=== PATIENT | female | born 1970 | race Caucasian/White ===

== ENCOUNTER 2019-12-11 21:56 | Inpatient (IN) | payer OTHER ==
[~2019-12-11] VITALS: Ht 160 cm; Wt 90.8 kg
[2019-12-11 21:56] VITALS: BP 154/91
[2019-12-11 22:23] LABS: BE(vivo) -10.2 mmol/L (-2 to +3); HCO3 13.8 mmol/L (22.0-26.0); PCO2 25.2 mmHg (35.0-45.0); PO2 81.4 mmHg (80.0-100.0); pH 7.356 (7.360-7.450); sO2 95.8 % (92.0-98.0)
[2019-12-11] MEDS ORDERED: ELIQUIS5 MG PO (22:46)
[2019-12-11] MEDS ORDERED: ACETAMINOPHEN PO (22:46)
[2019-12-11] MEDS ORDERED: LIPITOR80 MG PO (22:47)
[2019-12-11] MEDS ORDERED: CARVEDILOL12.5 MG PO (22:47)
[2019-12-11] MEDS ORDERED: CELEXA 10 MG TA10 M1 PO (22:48)
[2019-12-11] MEDS ORDERED: CLONAZEPAM 0.50.5 M1 PO (22:48)
[2019-12-11] MEDS ORDERED: DORYX MPC120 MG PO (22:49)
[2019-12-11] MEDS ORDERED: PLAVIX 75 MG TA75 MG PO (22:49)
[2019-12-11] MEDS ORDERED: LORCET 5-325 M1 EACH PO (22:50)
[2019-12-11] MEDS ORDERED: ACID REDUCER20 MG PO (22:50)
[2019-12-11 22:51] LABS: HEMOGLOBIN 9.7 gm/dL (12.0-15.0); MCH 27.1 pg (26.0-34.0); MCHC 31.3 g/dL (28.0-37.0); MCV 86.4 fL (80.0-100.0); PLATELET COUNT 570 thou/uL (150-400); RBC 3.59 mil/uL (4.20-5.00); RDW 19.1 % (10.5-14.5)
[2019-12-11] MEDS ORDERED: ISOSORBIDE PO (22:51)
[2019-12-11] MEDS ORDERED: GLARGINE SUBQ (22:51)
[2019-12-11] MEDS ORDERED: SUPER THERAVIT1 EACH PO (22:52)
[2019-12-11] MEDS ORDERED: MIRALAX17 G1 PO (22:54)
[2019-12-11] MEDS ORDERED: NITROSTAT0.4 M1 SUBLING (22:54)
[2019-12-11] MEDS ORDERED: SEN-O-TAB8.6 MG PO (22:55)
[2019-12-11] MEDS ORDERED: ROPINIROLE HCL2 MG PO (22:55)
[2019-12-11] MEDS ORDERED: ACETAMINOPHEN325 MG PO (22:56)
[2019-12-11] MEDS ORDERED: TRAMADOL 50 MG50 MG PO (22:56)
[2019-12-11 23:01] LABS: CALCIUM 8.4 mg/dL (8.5-10.1); CREATININE 1.7 mg/dL (0.6-1.0); POTASSIUM 4.8 mmol/L (3.5-5.1)
[2019-12-11 23:12] LABS: ALBUMIN 2.6 g/dL (3.4-5.0); MAGNESIUM 1.4 mg/dL (1.8-2.4); TOTAL BILIRUBIN 0.3 mg/dL (<0.1-1.0); TOTAL PROTEIN 8.2 g/dL (6.4-8.2)
[2019-12-11 23:16] LABS: TROPONIN-I 1.15 ng/mL (<0.06)
[2019-12-11 23:26] LABS: URINE BILIRUBIN NEGATIVE (Negative); URINE BLOOD TRACE (Negative); URINE CLARITY CLOUDY; URINE COLOR YELLOW; URINE GLUCOSE-RANDOM* NEGATIVE (Negative); URINE KETONES NEGATIVE (Negative); URINE NITRITE-REFLEX NEGATIVE (Negative); URINE PROTEIN (DIPSTICK) 2+ (Negative); URINE SPECIFIC GRAVITY >= 1.030 (1.005-1.035); URINE UROBILINOGEN 0.2 E.U./dl (0.2-1.0)
[2019-12-11 23:31] LABS: ABSOLUTE NEUTROPHILS 19.7 thou/uL (1.4-8.2); ANISOCYTOSIS 2+; POLYCHROMASIA SLIGHT
[2019-12-11 23:31] LABS: URINE LEUKOCYTES-REFLEX 1+ (Negative)
[2019-12-11 23:33] LABS: SQUAMOUS 4-10 Moderate /LPF (0-3); URINE RBC 0-2 Rare /HPF (0-2); URINE WBC-REFLEX >25 Many /HPF (0-5); WBC CLUMPS Moderate (None Seen)
[2019-12-11 23:34] LABS: COARSE GRANULAR CASTS 0-3 Few /LPF (None Seen); CRYSTALS None Seen /LPF (None Seen); HYALINE CASTS 4-10 Moderate /LPF (None Seen); MUCUS 4-6 Moderate strn/LPF (None Seen)
--- NOTE | 2019-12-11 23:47 | NUR ---
INSULIN DOSAGE VERIFIED WITH NURSE PRIOR TO ADMINISTRATION
[2019-12-12] VITALS (20 sets, daily range): BP systolic 88–145; BP diastolic 51–82
[2019-12-12 02:25] LABS: APTT 29.2 Seconds (24.5-32.8); D-DIMER 1.61 ug/mLFEU (0.19-0.50); INR 1.1; PROTIME 11.2 Seconds (9.3-11.4)
[2019-12-12 02:52] LABS: BE(vivo) -6.6 mmol/L (-2 to +3); HCO3 18.1 mmol/L (22.0-26.0); PCO2 33.1 mmHg (35.0-45.0); PO2 155.7 mmHg (80.0-100.0); pH 7.356 (7.360-7.450); sO2 98.9 % (92.0-98.0)
[2019-12-12 06:23] LABS: HEMATOCRIT 30.6 % (37.0-47.0); HEMOGLOBIN 9.7 gm/dL (12.0-15.0); MCH 27.2 pg (26.0-34.0); MCHC 31.7 g/dL (28.0-37.0); MCV 85.8 fL (80.0-100.0); RBC 3.56 mil/uL (4.20-5.00); RDW 19.3 % (10.5-14.5); WBC 34.5 thou/uL (4.0-11.0)
[2019-12-12 06:32] LABS: CALCIUM 8.2 mg/dL (8.5-10.1); CREATININE 1.5 mg/dL (0.6-1.0); POTASSIUM 4.5 mmol/L (3.5-5.1)
--- NOTE | 2019-12-12 06:59 | NUR ---
ASSESSMENT: PT ARRIVED TO THE UNIT AT APPROXIMATELY 0200 ACCOMPANIED BY ED. PT WAS INTUBATED IN ED. TV 500, FIO2 40%, RATE 16, PEEP 5. MARLI NOTIFIED OF TROP OF 3.72, NO ORDERS GIVEN. BLOOD PRESSURE WAS RUNNING 80/60 SUSTAINING,. LEVOPHED INITIATED. TITRATED TO MAX OF 30MCG/HR. TWO ULCER WOUNDS NOTED ON LEFT FOOT (GREAT TOE IS REMOVED) AND RIGHT ANKLE AREA. DRESSING WERE CHANGED AND WOUND CARE NOTIFIED. SR PER MONITOR, AFEBRILE. BISHOP PLACED, IV PLACED IN RIGHT BREAST. BLOODY SECRETIONS PER ETT. PLACED IN ENHANCED PREC FOR R/O COVID-19
--- NOTE | 2019-12-12 09:30 | EKG ---
[facility] [place] [address] ELECTROCARDIOGRAM REPORT Name: DESIRE SUBRAMANIAN Room #: 242-P ADM IN M.R.#: [id number] Admission: 12/11/19 Attend Phys: Darryl Fitzgerald Discharge: Date of : 72 Report #: [id number] THIS REPORT FOR: cc: NAZANIN - Naz family physician/PCP NAZANIN - Naz family physician/PCP Carlos Arguello MD [facility] THIS REPORT FOR: //name// [facility] ED Test Date: 2019-12-11 Test Time: 22:10:54 Pat Name: DESIRE SUBRAMANIAN Department: Room: [facility] Gender: F Research Scholar: : 1970 Requested By: Karl Funk Order Number: [id number] MD: Carlos Arguello Measurements Intervals [place] Rate: 147 P: 73 TN: 123 QRS: 149 QRSD: 123 T: 44 QT: 317 QTc: 496 Interpretive Statements Probable sinus tachycardia Nonspecific intraventricular conduction delay Poor R wave progression Nonspecific ST and T wave abnormality Baseline wander in lead(s) III No previous ECG available for comparison Electronically Signed On 12-12-2019 9:29:05 CDT by Carlos Arguello [email or web address] <ELECTRONICALLY SIGNED> By: Carlos Arguello MD, [facility] 12/12/19 0929 2210 221 Carlos Arguello MD, [facility] /EPI
--- NOTE | 2019-12-12 11:24 | EKG ---
[facility] [place] [address] ELECTROCARDIOGRAM REPORT Name: DESIRE SUBRAMANIAN Room #: 242-P ADM IN M.R.#: [id number] Admission: 12/11/19 Attend Phys: Darryl Fitzgerald Discharge: Date of : 72 Report #: [id number] THIS REPORT FOR: cc: NAZANIN - No family physician/PCP FAM - No family physician/PCP Beto Carrera MD ~ THIS REPORT FOR: //name// [facility] Test Date: 2019-12-12 Test Time: 10:38:40 Pat Name: DESIRE SUBRAMANIAN Department: Room: [facility] Gender: F Laundry Attendant: Ayaka COLON : 1970 Requested By: Melody Farnsworth Order Number: [id number] MD: Beto Carrera Measurements Intervals [place] Rate: 99 P: 53 LA: 144 QRS: 94 QRSD: 113 T: 80 QT: 376 QTc: 483 Interpretive Statements Sinus rhythm Anteroseptal infarct, age indeterminate Compared to ECG 12/11/2019 22:10:54 Myocardial infarct finding now present Intraventricular conduction delay no longer present Poor R-wave progression no longer present ST (T wave) deviation no longer present Electronically Signed On 12-12-2019 11:23:21 CDT by Beto Carrera [email or web address] <ELECTRONICALLY SIGNED> By: Beto Carrera MD 12/12/19 1123 1038 1038 Beto Carrera MD /EPI
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
--- NOTE | 2019-12-12 14:43 | NUR ---
VAT CONSULTED FOR A CL FOR THIS PT IN ICU WITH COVID PUI. A [id number] CL PLACED IN RT IJ PER PROTOCOL. CXR ORDERED FOR CONFIRMATION. SEE INSERTION FOR DETAILS
--- NOTE | 2019-12-12 16:44 | NUR ---
PT INTUBATED AND LIGHTLY SEDATED ON VERSED GTT. ASSESSMENTS DOCUMENTED. PT DROWSY BUT AROUSABLE, ALERT AND ORIENTED. FIO2 TITRATED DOWN TO 30% PT SATURATIONS ABOUE 97%. WOUND CARE CONSULTED FOR BILATERAL LOWER EXTREMITY WOUNDS. IV TEAM PLACED A RIGHT IJ, XRAY CONFIRMED TIP PLACEMENT. ADEQUATE URINE OUTPUT. PT PROGRESSING TOWARDS PLAN OF CARE EVIDANCE BY DECREASED FIO2. WILL CONTINUE TO MONITOR.
[2019-12-13] VITALS (44 sets, daily range): BP systolic 92–138; BP diastolic 41–70
[2019-12-13 04:06] LABS: HEMATOCRIT 25.8 % (37.0-47.0); HEMOGLOBIN 8.2 gm/dL (12.0-15.0); MCH 27.1 pg (26.0-34.0); MCV 84.7 fL (80.0-100.0); PLATELET COUNT 456 thou/uL (150-400); RBC 3.04 mil/uL (4.20-5.00); RDW 18.1 % (10.5-14.5); WBC 21.5 thou/uL (4.0-11.0)
[2019-12-13 04:20] LABS: CALCIUM 7.8 mg/dL (8.5-10.1); CREATININE 1.3 mg/dL (0.6-1.0)
[2019-12-13 04:22] LABS: POTASSIUM 3.3 mmol/L (3.5-5.1)
--- NOTE | 2019-12-13 06:47 | NUR ---
PATIENTS CARES WERE ASSUMED AT SHIFT CHANGE, PATIENT WAS ASSESSED AND MEDS WERE PASSED. PATIENT CONTINUES IN DROPPLETT PRECAUTIONS. COVID RESULT #1 CAME BACK NEGATIVE. PATIENT CONTINUES ON A VERSID GTT AT 5CC/HR. VS ARE STABLE AND PATIENT DOES APPER TO BE COMFORABLE. PATIENT HAD A BATH AND LINES WERE CHANGES THIS SHIFT. HOURLY ROUNDS WERE MADE AND BED IS IN A LOW AND LOCKED POSITION.
[2019-12-13 08:31] LABS: % SATURATION 6 % (20-39); IRON 14 ug/dL (50-170); TIBC 225 ug/dL (250-450)
--- NOTE | 2019-12-13 09:09 | 2DMMODE ---
[facility] [place] [address] 2 D/M-MODE ECHOCARDIOGRAM Name: DESIRE SUBRAMANIAN Room #: 242-P ADM IN M.R.#: [id number] Admission: 12/11/19 Attend Phys: Darryl Fitzgerald Discharge: Date of : 72 Report #: [id number] THIS REPORT FOR: cc: FAM - No family physician/PCP FAM - No family physician/PCP Carlos Arguello MD [facility] ~ APPROVED REPORT Study performed: 12/13/2019 08:16:11 EXAM: Comprehensive 2D, Doppler, and color-flow Echocardiogram Patient Location: ICU Room #: 242 Status: routine BSA: 1.85 HR: 108 bpm BP: 111/56 mmHg Rhythm: NSR/tachy Other Information Study Quality: Adequate Technically limited study due to on vent, obesity, lung disease. Indications Short of breath, elevated troponin. Hx: CAD, NSTEMI, COPD, CVA, HTN, HLP, DM. 2D Dimensions RVDd: 35.77 mm IVSd: 11.43 (7-11mm) LVOT Diam: 19.11 (18-24mm) LVDd: 50.09 mm PWd: 10.22 (7-11mm) Ascending Ao: 27.66 (22-36mm) LVDs: 40.28 (25-40mm) Aortic Root: 25.46 mm Volumes Left Atrial Volume (Systole) Single Plane 4CH: 33.48 mL Single Plane 2CH: 49.61 mL LA ESV Index: 24.00 mL/m2 Aortic Valve AoV Peak Dileep.: 1.91 m/s AO Peak Gr.: 14.64 mmHg LVOT Max P.22 mmHg [facility] [address] [place] [address] 2 D/M-MODE ECHOCARDIOGRAM Name: DESIRE SUBRAMANIAN Room #: 242-P [facility] IN [facility]#: [id number] Admission: 12/11/19 Attend Phys: Darryl Sanderson Mar Discharge: Date of : 72 Report #: [id number] LVOT Max V: 1.25 m/s JESUS MANUEL Vmax: 1.87 cm2 Mitral Valve E/A Ratio: 1.2 MV Decel. Time: 173.79 ms MV E Max Dileep.: 1.16 m/s MV A Dileep.: 0.93 m/s MV PHT: 50.40 ms IVRT: 43.83 ms Pulmonary Valve PV Peak Dileep.: 1.27 m/s PV Peak Gr.: 6.42 mmHg Tricuspid Valve RAP Estimate: 10.00 mmHg Left Ventricle The left ventricle is normal size. Regional wall motion is not well visualized but grossly normal. There is normal left ventricular wall thickness. Left ventricular systolic function is at the lower limits of normal LVEF is 50-55%. Right Ventricle The right ventricle is normal size. The right ventricular systolic function is normal. Atria The left atrium size is normal. The right atrium size is normal. Aortic Valve The aortic valve is mildly calcified. No aortic regurgitation is present. There is no aortic valvular stenosis. Mitral Valve The mitral valve is normal in structure. Moderate mitral regurgitation. Tricuspid Valve The tricuspid valve is normal in structure. There is no tricuspid valve regurgitation noted. Unable to assess PA pressure. Pulmonic Valve The pulmonary valve is normal in structure. There is no pulmonic valvular regurgitation. [facility] [place] [address] 2 D/M-MODE ECHOCARDIOGRAM Name: DESIRE SUBRAMANIAN Room #: 242-P ADM IN M.R.#: [id number] Admission: 12/11/19 Attend Phys: Darryl Orozco Discharge: Date of : 72 Report #: [id number] Great Vessels The aortic root is normal in size. The ascending aorta is normal in size. IVC is normal in size and collapses <50% with inspiration. Pericardium There is no pericardial effusion. <Conclusion> Left ventricular systolic function is at the lower limits of normal Regional wall motion is not well visualized but grossly normal. LVEF is 50-55%. The aortic valve is mildly calcified. No aortic regurgitation or stenosis The mitral valve is normal in structure. Moderate mitral regurgitation. Unable to assess pulmonary artery pressure. There is no pericardial effusion. <ELECTRONICALLY SIGNED> By: Carlos Arguello MD, [facility] 12/13/19 0908 7 7 Carlos Arguello MD, [facility] /INF
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
[2019-12-13 11:21] LABS: ABSOLUTE NEUTROPHILS 19.6 thou/uL (1.4-8.2)
[2019-12-13 11:22] LABS: ANISOCYTOSIS 2+
--- NOTE | 2019-12-13 12:46 | NUR ---
DR HERNANDEZ IN TO SEE PT, HE WOULD LIKE A CPAP TRIAL ON PT. CALLING RT
--- NOTE | 2019-12-13 13:01 | HC ---
[facility] [place] [address] CONSULTATION Name: DESIRE SUBRAMANIAN Room #: 242-P [facility] IN .R.#: [id number] Admission: 12/11/19 Attend Phys: Darryl Fitzgerald Discharge: Date of : 72 Report #: [id number] THIS REPORT FOR: cc: NAZANIN Childs family physician/PCP NAZANIN Childs family physician/PCP Karl Soto MD ~ CC: NAZANIN physician/PCP Darryl Fitzgerald DATE OF SERVICE: 12/12/2019 INFECTIOUS DISEASE CONSULTATION REASON FOR CONSULTATION: I was asked to evaluate concerning respiratory failure, possible COVID-19 infection. HISTORY OF PRESENT ILLNESS: A 49-year-old with underlying history of obstructive sleep apnea, COPD, coronary artery disease, hypertension, who resides at [facility]. Over the last 48 hours, she has had progressive shortness of breath and cough. This has been associated with low-grade fever, mild chills. Her oxygen saturation declined and she was transferred to Emergency Room for further evaluation. She had feeling of fatigue. During her initial evaluation, she was found to have bilateral pulmonary infiltrates and was hypoxic. It is noted that there was no known cases of COVID-19 at her prison. She had evidence of cardiac injury by troponin levels. It was elected to intubate the patient due to her respiratory compromise. She has had minimal tracheal secretions. She is now on FiO2 of 30%, PEEP of 5. Unable to give any further details. Initially, she was on epinephrine drip, but that has been weaned off. She received IV fluids. Now has reasonable urine output. She does arouse. She has an OG in place with minimal residual. There has been no diarrhea. She has peripheral IVs in place. No rash or decubiti. No gross aspiration episodes. She has had no travel. ALLERGIES: None known. MEDICATIONS: As noted on her MAR, which were reviewed. These have included doxycycline, now on Eliquis, aspirin, atorvastatin, azithromycin, Pepcid, insulin, Versed drip, Zosyn, vancomycin, hydrocortisone. PAST MEDICAL HISTORY: Bipolar disorder, anemia, anxiety, peripheral vascular disease, gastroesophageal reflux, fibromyalgia, embolism and thrombosis of the right upper extremity, acute kidney injury, obstructive sleep apnea, diabetes, peripheral neuropathy, asthma, COPD, DVT, acute kidney injury, non-STEMI, coronary artery disease, carotid artery disease. REVIEW OF SYSTEMS: A 14-point review of system was negative other than what has [facility] [address] [place] [address] CONSULTATION Name: DESIRE SUBRAMANIAN Room #: 242-P [facility] IN [facility]#: [id number] Admission: 12/11/19 Attend Phys: Darryl Fitzgerald Discharge: Date of : 72 Report #: [id number] been reported above. FAMILY HISTORY: No report of tuberculosis. SOCIAL HISTORY: No significant alcohol or tobacco use reported. PHYSICAL EXAMINATION: VITAL SIGNS: She was afebrile and hemodynamically stable. SKIN: Without rash or decubitus. HEENT: Eyes without scleral icterus. Orally intubated. NECK: Supple. LUNGS: Coarse breath sounds posteriorly. HEART: Regular, without murmur, gallop, or rub. ABDOMEN: Soft and nontender. EXTREMITIES: Without clubbing, cyanosis, or edema. She was sedated. Able to move all extremities. Had indwelling Quinteros catheter. LABORATORY STUDIES: Reviewed. Microbiology reviewed. Chest x-ray reviewed. IMPRESSION: 1. Bilateral pulmonary infiltrates consistent with healthcare-associated pneumonia with associated septic shock. Still possible we are dealing with COVID-19 infection. 2. In addition, has developed a non-STEMI associated with metabolic acidosis and acute kidney injury. 3. She has evidence of cystitis with pyuria and bacteriuria. 4. Diabetes and known coronary artery disease. RECOMMENDATIONS: We will continue full ICU support with ventilator support, IV antibiotic therapy, fluid resuscitation and close monitoring by nursing staff. Obtain cultures of blood, urine and sputum. PCRS for viral pathogens and antigens. Continue precautions for COVID-19 for now. Adjust antibiotics, pending culture results. <ELECTRONICALLY SIGNED> By: Karl Soto MD 12/13/19 1301 2143 2153 Karl Soto MD /nt
--- NOTE | 2019-12-13 13:51 | NUR ---
FAXED CLINICAL UPDATE TO [facility] SPOKE WITH CHRISTELLE IN ADM SHE RECEIVED UPDATE. DP TO FOLLOW.
--- NOTE | 2019-12-13 15:19 | NUR ---
If tube feedings started, recommend vital AF 1.2 to start 30ml/hr and progress to goal 50ml/hr. Defer any fluid needs/flushes to physician.
[2019-12-14] VITALS (24 sets, daily range): BP systolic 86–124; BP diastolic 48–72
[2019-12-14 05:11] LABS: ABSOLUTE NEUTROPHILS 12.9 thou/uL (1.4-8.2); BASOPHILS 0.4 % (0.0-2.0); EOSINOPHILS 3.4 % (0.0-3.0); HEMATOCRIT 23.2 % (37.0-47.0); HEMOGLOBIN 7.5 gm/dL (12.0-15.0); LYMPHOCYTES 9.2 % (24.0-44.0); MCH 27.3 pg (26.0-34.0); MCHC 32.2 g/dL (28.0-37.0); MCV 84.8 fL (80.0-100.0); MONOCYTES 6.4 % (1.0-8.0); PLATELET COUNT 399 thou/uL (150-400); POLYS 80.6 % (36.0-66.0); RBC 2.73 mil/uL (4.20-5.00); RDW 18.5 % (10.5-14.5)
[2019-12-14 05:21] LABS: CALCIUM 8.5 mg/dL (8.5-10.1); CREATININE 1.2 mg/dL (0.6-1.0); POTASSIUM 3.7 mmol/L (3.5-5.1)
--- NOTE | 2019-12-14 05:59 | NUR ---
Updates allergies list per pt's medical record.
--- NOTE | 2019-12-14 07:25 | NUR ---
PT ANXIOUS THROUGHOUT THE NIGHT. WENT UP ON PT SEDATION. PT RESTLESS AND ITCHING THIS AM. BENADRYL 25 MG IV GIVEN. PT ABLE TO FOLLOW COMMANDS. URINE OUTPUT ADEQUATE. NOT TOLERATING TUBE FEED. TUBE FEED ON HOLD. RESIDUAL OF 250 ML. CONTINUE TO MONITOR. PLAN FOR CPAP TRAIL TODAY. CHART CHECK. REPORT GIVEN TO ONCOMING RN. PT PROGRESSING TOWARDS GOALS.
[2019-12-14 08:41] LABS: BE(vivo) -5.3 mmol/L (-2 to +3); HCO3 19.5 mmol/L (22.0-26.0); PCO2 35.3 mmHg (35.0-45.0); PO2 113.4 mmHg (80.0-100.0); pH 7.361 (7.360-7.450)
--- NOTE | 2019-12-14 08:43 | EKG ---
[facility] [address] [place] [address] ELECTROCARDIOGRAM REPORT Name: DESIRE SUBRAMANIAN Room #: 242-P ADM IN M.R.#: [id number] Admission: 12/11/19 Attend Phys: Darryl Fitzgerald Discharge: Date of : 72 Report #: [id number] THIS REPORT FOR: cc: NAZANIN - No family physician/PCP NAZANIN - No family physician/PCP Beto Carrera MD ~ THIS REPORT FOR: //name// [facility] Test Date: 2019-12-14 Test Time: 07:48:33 Pat Name: DESIRE SUBRAMANIAN Department: Room: 242 P Gender: F Environmental Services Supervisor: CLAIRE : 1970 Requested By: Carlos Arguello Order Number: [id number] MD: Beto Carrera Measurements Intervals [place] Rate: 101 P: 54 ND: 144 QRS: 25 QRSD: 107 T: 88 QT: 385 QTc: 500 Interpretive Statements Sinus tachycardia Borderline low voltage, extremity leads Borderline prolonged QT interval Baseline wander in lead(s) V1 Compared to ECG 12/12/2019 10:38:40 Sinus rhythm no longer present Myocardial infarct finding no longer present Electronically Signed On 12-14-2019 8:41:28 CDT by Beto Carrera [email or web address] <ELECTRONICALLY SIGNED> By: Beto Carrera MD 12/14/19840 7 7 Beto Carrera MD /EPI
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
--- NOTE | 2019-12-14 11:58 | NUR ---
PT INTUBATED ON VERSED AND FENTYNL GTT. CPAP TRIAL DONE BY RT FROM [id number]. TOLERATED WELL, RESPIRATIONS BETWEEN 20-26/MIN. SPOKE WITH DR HERNANDEZ ABOUT INCREASING THE MAX VERSED DOSE DUE TO PT AGITATION, HE AGREED AND PHARMACY WAS CALLED.
--- NOTE | 2019-12-14 15:08 | HC ---
[facility] [place] [address] [place] [address] CONSULTATION Name: DESIRE SUBRAMANIAN Room #: 242-P ADM IN M.R.#: [id number] Admission: 12/11/19 Attend Phys: Darryl Fitzgerald Discharge: Date of : 72 Report #: [id number] THIS REPORT FOR: cc: NAZANIN - Naz family physician/PCP NAZANIN - Naz family physician/PCP Vinnie Michael MD ~ CC: NAZANIN physician/PCP Darryl Fitzgerald DATE OF SERVICE: 12/12/2019 CHIEF COMPLAINT: Bilateral foot ulcerations. HISTORY OF PRESENT ILLNESS: This is a 49-year-old female patient who was admitted to the hospital through the Emergency Department. She is currently a resident in a longterm. She has a history of acute on chronic respiratory failure, COPD, coronary artery disease and hyperlipidemia with worsening fever and chills and cough. She was hypoxic. She was intubated in the Emergency Department. She was noted to have elevated troponin and lactic acid. She also had ulceration to her right heel and a surgical wound to her left foot. I have been asked to see her with regard to wound care. The patient can provide no information about herself at this time. PAST MEDICAL HISTORY: Positive for history of anemia, bipolar, hyperlipidemia, anxiety, peripheral vascular disease, gastroesophageal reflux disease, fibromyalgia, history of bipolar disorder, history of obstructive sleep apnea and type 2 diabetes mellitus, sepsis, osteomyelitis, amputation of the left great toe, respiratory failure and coronary artery disease. MEDICATIONS: Include apixaban, Lipitor, Coreg, Celexa, clonazepam, Plavix, doxycycline, Lorcet, Isordil, Nitrostat, MiraLax, ropinirole, senna tab, Ultram, and acetaminophen. FAMILY HISTORY: Unknown. SOCIAL HISTORY: Unknown. REVIEW OF SYSTEMS: Unobtainable due to the patient being unresponsive on a ventilator. PHYSICAL EXAMINATION: VITAL SIGNS: At this time include temperature 38.0, pulse rate 98, respiratory rate 27, and blood pressure 125/68. GENERAL: This is a chronically ill-appearing female patient who appears to be minimally responsive on a ventilator. HEENT: Head normocephalic. Nose is clear. Mouth and throat demonstrates the [facility] [address] [place] [address] CONSULTATION Name: DESIRE SUBRAMANIAN Ayaka Room #: 242-P [facility] IN .R.#: [id number] Admission: 12/11/19 Attend Phys: Darryl Fitzgerald Discharge: Date of : 72 Report #: [id number] patient is orally intubated. NECK: Supple. LUNGS: Coarse breath sounds. HEART: Regular rhythm. ABDOMEN: Soft. Bowel sounds present. EXTREMITIES: Demonstrate that the feet are pink, warm and dry. Capillary refill is slightly delayed. I am not able to palpate distal pulses. There is a large ulceration on the posterolateral right heel. It is, however, is relatively clean and granulating. We are very close to the calcaneus, but no bone is exposed. Left foot demonstrates a surgical wound, likely following amputation of the left great toe, also healthy, clean, granulating without evidence of infection at this time. NEUROLOGIC: The patient is difficult to assess as she is sedated on a ventilator. LABORATORY DATA: Sodium 135, potassium 4.5, chloride 101, CO2 of 23, BUN 17, creatinine 1.5, glucose 343, calcium is 8.2. Troponin is 11.28. White blood cell count 34.5, hemoglobin is 9.7. CLINICAL IMPRESSION: 1. Pressure ulceration, likely stage 3 to the right heel. 2. Status post great toe amputation. 3. Sepsis with acute hypoxic respiratory failure, requiring mechanical ventilation. 4. Elevated troponin with history of coronary artery disease. 5. Diabetes mellitus type 2. 6. History of healthcare-associated pneumonia. 7. Chronic obstructive pulmonary disease. 8. Acute kidney injury. RECOMMENDATIONS: At this point in time, we will recommend Xeroform gauze, Kerlix daily to both feet. She will need PRAFO boots for pressure prophylaxis, low air loss mattress, every 2 hour turning and positioning, ongoing nutritional support, continuation of current medications. We will check arterial Doppler as well. Additional decision making will be forthcoming upon review of additional laboratory and radiology studies. I appreciate being asked to see her in consultation. <ELECTRONICALLY SIGNED> By: Vinnie Michael MD 12/14/19 1508 1704 1731 Vinnie Michael MD /nt
[2019-12-15] VITALS (24 sets, daily range): BP systolic 102–160; BP diastolic 61–95
[2019-12-15 06:39] LABS: HEMATOCRIT 24.8 % (37.0-47.0); MCH 27.4 pg (26.0-34.0); MCHC 32.5 g/dL (28.0-37.0); MCV 84.3 fL (80.0-100.0); RBC 2.94 mil/uL (4.20-5.00); RDW 18.4 % (10.5-14.5)
[2019-12-15 06:43] LABS: CALCIUM 8.9 mg/dL (8.5-10.1); POTASSIUM 4.4 mmol/L (3.5-5.1)
--- NOTE | 2019-12-15 07:19 | NUR ---
ASSUME CARE 1900. PT A/O X 4. FOLLOWS COMMANDS/ COMMUNICATES NEEDS WELL/FLETCHER. VITALS STABLE. NO PAIN NOTED. POOR TOLERANCE TO ACTIVITY BUT HELPS WITH TURNS IN BED. ON BIPAP WITH 3L O2. TOLERATING WELL SATS IN MID TO HIGH 90s. ASSESSMENT AAS CHARTED. PROGRESSING MODERATELY WITH POC. PLAN IS TO CONTINUE TO CONTINUE WITH ABX TREATMENT AND TO MONITOR RESPIRATORY FUNCTION. ADEQUATE REST NOTED WITH NO DISTRESS. WILL CONTINUE TO MONITOR
--- NOTE | 2019-12-15 19:13 | NUR ---
ASSUMED CARE AT 0700, ASSESSMENT AND VITAL SIGNS COMPLETED PER ICU PROTOCOL. DR. DEUTSCH ROUNDED THIS AM, NEW ORDERS RECEIVED AND EXECUTED. DR. BOWERS ROUNDED THIS AM, NO NEW ORDERS RECEIVED. DR. HERNANDEZ ROUNDED THIS AFTERNOON, NEW ORDERS RECEIVED AND EXECUTED. AT 1730, PT BECAME ANXIOUS, WITH INCREASED RR IN THE 40s. DR. DEUTSCH PAGED AND NOTIFIED, NEW ORDERS RECEIVED. RN WILL CONTINUE TO MONITOR AND ASSESS.
--- NOTE | 2019-12-15 22:55 | NUR ---
Transfer orders to tele. Report given to Marlys OLIVERA. Transfered to [facility]. Patient alert and oriented. Tachypneic 30's and Tachycardic HR low 100's.
[2019-12-16 00:18] VITALS: BP 140/96
[2019-12-16 03:54] VITALS: BP 147/89
[2019-12-16 05:27] LABS: HEMATOCRIT 29.7 % (37.0-47.0); HEMOGLOBIN 9.1 gm/dL (12.0-15.0); MCH 26.5 pg (26.0-34.0); MCHC 30.7 g/dL (28.0-37.0); MCV 86.3 fL (80.0-100.0); RBC 3.44 mil/uL (4.20-5.00); RDW 19.2 % (10.5-14.5); WBC 23.1 thou/uL (4.0-11.0)
[2019-12-16 05:34] LABS: CALCIUM 9.3 mg/dL (8.5-10.1); CREATININE 1.2 mg/dL (0.6-1.0); POTASSIUM 4.2 mmol/L (3.5-5.1)
[2019-12-16 08:00] VITALS: BP 135/81
--- NOTE | 2019-12-16 08:26 | NUR ---
ASSUME CARE 2230 FROM ICU. SOB NOTED BUT PT PLACED ON BIPAP WITH 4L O2. TOLERATING MOLDLY AND INDICATED SHE WANTED TO BE PLACED ON HIGH FLOW 14L. SR/ST ON MONITOR. NOTED RESPIRATPRY DISTRESS AT 0550AM. PATIENT COUGHING AND VERY SHORT OF BREATH, LUNGS SOUNDS VERY WET AND COARSE. 40MG LASIX X 1 DOSE GIVEN, ATIVAN GIVEN FOR ANXIETY AND PT PLACED ON BIPAP AT 14/6, RATE OF 12, 40% O2. PT TOLERATING BIPAP, DR HERNANDEZ UPDATED, CHEST X RAY ORDERED. PT APPEARS STABLE WITH BPM AT 22 AND SATS AT 98%. ASSESSMENT CHARTED. WILL CONITNUE TO MONITOR AND FOLLOW WITH POC
[2019-12-16 11:40] VITALS: BP 140/87
[2019-12-16 12:55] LABS: URINE BILIRUBIN NEGATIVE (Negative); URINE BLOOD NEGATIVE (Negative); URINE CLARITY CLEAR; URINE COLOR YELLOW; URINE GLUCOSE-RANDOM* 3+ (Negative); URINE KETONES NEGATIVE (Negative); URINE LEUKOCYTES-REFLEX TRACE (Negative); URINE NITRITE-REFLEX NEGATIVE (Negative); URINE PROTEIN (DIPSTICK) NEGATIVE (Negative); URINE SPECIFIC GRAVITY 1.015 (1.005-1.035); URINE UROBILINOGEN 0.2 E.U./dl (0.2-1.0)
[2019-12-16 17:15] VITALS: BP 123/77
--- NOTE | 2019-12-16 20:39 | NUR ---
RECEIVED PT'S CARE AROUND 0720; PT. ON BED; RESTING WITH EYES CLOSED; O2 SAT ABOVE 90%; REQUESTED BYPAP OFF; DURING AM ASSESSMENT C/O GENERALIZED PAIN; AM MEDICATION GIVEN; RESTING WITH EYES CLOSED WHEN LEAVING ROOM; EDUCATED ABOUT FALL PREVENTIONS; ST. UNDERSTANDING; EDUCATED ABOUT THE IMPORTANCE OF TURNING FROM SIDE TO SIDE; ST. UNDERSTANDING; D/C FLUIDS; PER DR. HERNANDEZ NOT TO D/C BISHOP; BISHOP LEFT; LATE ON THE AFTERNOON PT. SHOWED LABORED BREATHING; 02 SAT 98%; BYPAP ON; EDUCATED ABOUT THE IMPORTANCE OF MANTAINING BYPAP ON PLACE; ST. UNDERSTANDING; NEEDED TO BE REMAINED THROUGH THE AFTERNOON; SR TO ST ON THE MONITOR; ASSESSMENT CHARGED; FOLLOWING POC; PASSED ON REPORT;
[2019-12-16 20:46] VITALS: BP 138/73
[2019-12-17 04:09] VITALS: BP 137/83
[2019-12-17 05:35] LABS: HEMATOCRIT 26.4 % (37.0-47.0); HEMOGLOBIN 8.5 gm/dL (12.0-15.0); MCH 27.1 pg (26.0-34.0); MCHC 32.3 g/dL (28.0-37.0); MCV 83.8 fL (80.0-100.0); RBC 3.15 mil/uL (4.20-5.00); RDW 18.4 % (10.5-14.5)
[2019-12-17 05:48] LABS: CALCIUM 9.3 mg/dL (8.5-10.1); POTASSIUM 3.7 mmol/L (3.5-5.1)
--- NOTE | 2019-12-17 06:11 | NUR ---
ASSUMED PT CARE AT 1900, PT IS ALERT AND ORIENTEDX2, AWAKE, IN BED WITH BIPAP ON, PT COMPLAINED OF GENERALIZED PAIN, PRN MEDICATIONS GIVEN WITH PARTIAL RELIEF, DENIES CHEST PAIN OR SOB, SR TO ST ON THE MONITOR, ASSESSMENTS CHARTED, MEDICATIONS GIVEN ORDERED, DRESSING TO WOUNDS ON THE BLE CDI, REMAINED ON DROPLET ISOLATION, RESTED WITH NO CONCERNS, WILL CONTINUE TO MONITOR
[2019-12-17 08:00] VITALS: BP 137/76
--- NOTE | 2019-12-17 09:00 | NUR ---
ASSUMED CARE OF PT AT SHIFT CHANGE, ALERT X1-2, FORGETFUL. SO FAR NO IMPULSIVITY. BIPAP REMOVED AND NC PLACED PER RT. HUNGRY. NO NEEDS AT THIS TIME. EDNA DUMPED THIS A.M. WITH 1950 REMOVED, CLEAR YELLOW URINE. SEE SEPARATE INTEREVENTIONS FOR ASSESSMENTS. WILL CONTINUE TO MONITOR. PT SHOWS RETURN DEMO WITH CALL LIGHT. THOUGHT SHE WAS A [facility].
[2019-12-17 12:00] VITALS: BP 135/67
[2019-12-17 16:00] VITALS: BP 156/80
[2019-12-17 20:19] VITALS: BP 150/95
[2019-12-18 02:07] LABS: GLYCOHEMOGLOBIN (HGB A1C) 7.3 % (4.8-5.6)
[2019-12-18 05:03] LABS: HEMATOCRIT 29.3 % (37.0-47.0); HEMOGLOBIN 9.4 gm/dL (12.0-15.0); MCH 26.7 pg (26.0-34.0); MCHC 31.9 g/dL (28.0-37.0); MCV 83.7 fL (80.0-100.0); RBC 3.5 mil/uL (4.20-5.00); RDW 17.8 % (10.5-14.5); WBC 18.8 thou/uL (4.0-11.0)
[2019-12-18 05:11] LABS: CALCIUM 9.3 mg/dL (8.5-10.1); CREATININE 0.9 mg/dL (0.6-1.0); POTASSIUM 3.6 mmol/L (3.5-5.1)
[2019-12-18 05:12] VITALS: BP 124/82
--- NOTE | 2019-12-18 07:37 | NUR ---
assumed pt care at 1900, pt is awake, aleret and orientedx2, sinus rhythm/sinus tach on the monitor, vs stable o2 stable through the night on 3l nasal canula, complained of generalized pain, prn medications given with partial relief, wounds bilateral dressing intact, took medications without difficulty
[2019-12-18 08:00] VITALS: BP 119/76
--- NOTE | 2019-12-18 09:59 | NUR ---
FAXED CLINICAL UPDATE TO [facility] SPOKE WITH CHRISTELLE IN ADM SHE RECEIVED UPDATE. DP TO FOLLOW.
--- NOTE | 2019-12-18 11:17 | HC ---
[facility] [address] [place] [address] CONSULTATION Name: DESIRE SUBRAMANIAN Room #: 214-P [facility] IN .R.#: [id number] Admission: 12/11/19 Attend Phys: Darryl Fitzgerald Discharge: Date of : 72 Report #: [id number] THIS REPORT FOR: cc: NAZANIN Childs family physician/PCP NAZANIN Childs family physician/PCP Valorie Ross MD ~ CC: NAZANIN physician/PCP Darryl Fitzgerald DATE OF SERVICE: 12/17/2019 ENDOCRINE CONSULTATION NOTE CONSULTING PHYSICIAN: Dr. Fitzgerald. REASON FOR CONSULTATION: Uncontrolled type 2 diabetes mellitus. HISTORY OF PRESENT ILLNESS: This is a 49-year-old female patient whose medical background is significant for multiple medical issues including chronic respiratory failure, COPD, obstructive sleep apnea, CAD, status post VA, carotid artery disease, hypertension, hyperlipidemia and type 2 diabetes mellitus. The patient presented to the ER on the from [facility] with progressive shortness of breath and was admitted for further care and monitoring for COPD exacerbation. The patient ruled out for COVID-19. Again, the patient is known to have type 2 diabetes mellitus and when questioned about that history, the patient gave rather contradictory and nonspecific answers. She said that she has had type 2 diabetes mellitus for many years. She said that she self injects insulin at a dose of 80 units of Lantus and 80 units of NovoLog. She was not able to be specific on her blood sugar pattern, but indicated that she does have bouts of hypoglycemia. Having reviewed her medication records, it seems that the patient was maintained initially on Lantus 45 units at bedtime without a mention of rapid long-acting insulin coverage or oral agents for diabetes. The patient is known to have CAD, status post STEMI, she is also known to have chronic kidney disease and peripheral neuropathy. She has peripheral arterial disease and carotid arterial stenosis. The patient is known to have hypertension and hyperlipidemia and is maintained on atorvastatin 80 mg daily. REVIEW OF SYSTEMS: CONSTITUTIONAL: Fatigue, tiredness, but not fever or chills. HEENT: Negative for sore throat, sinus pain, ear drainage. PULMONARY: Shortness of breath and cough, but no hemoptysis. CARDIAC: No chest pain. She has occasional issues with palpitations, lower [address] [address] CONSULTATION Name: DESIRE SUBRAMANIAN Room #: 214-P [facility] IN ..#: [id number] Admission: 12/11/19 Attend Phys: Darryl Fitzgerald Discharge: Date of : 72 Report #: [id number] extremity swelling. NEUROLOGY: Negative for loss of consciousness, seizure activity or severe frequent headaches. She has intermittent bouts of numbness and tingling over both feet. PSYCHIATRIC: The patient has hypomania, question bipolar disorder. Otherwise, review of systems noncontributory other than those mentioned in HPI. PAST MEDICAL HISTORY: 1. Type 2 diabetes mellitus. 2. Hyperlipidemia. 3. Hypertension. 4. Chronic kidney disease. 5. Coronary artery disease, status post myocardial infarction. 6. Anemia. 7. Bipolar disorder. 8. Anxiety. 9. Peripheral vascular disease. 10. GERD. 11. Fibromyalgia. 12. Embolism and thrombosis. 13. Myopathy. 14. Obstructive sleep apnea. 15. History of osteomyelitis. 16. Chronic obstructive pulmonary disease. 17. Asthma. OUTPATIENT MEDICATIONS: Include Eliquis 5 mg b.i.d., atorvastatin 80 mg daily, carvedilol 3.125 mg b.i.d., Celexa 10 mg daily, clonazepam b.i.d. p.r.n., Plavix 75 mg daily, Lorcet 5/325 mg q. 6 hours p.r.n., Lantus insulin 45 units at bedtime, isosorbide 10 mg t.i.d., multivitamins daily. ALLERGIES: No known drug allergies. FAMILY HISTORY: Noncontributory. SOCIAL HISTORY: The patient says that she had quit smoking. She denies use of alcohol or illicit drugs. She has one daughter. PHYSICAL EXAMINATION: GENERAL: female patient sitting upright in bed, does not seem to be in acute pain or distress, but appears to be chronically ill. VITAL SIGNS: Blood pressure is 137/76 mmHg, heart rate is 86 beats per minute, respiration 18 per minute, temperature 36.7 degrees. CONSTITUTIONAL: Sitting upright, appears comfortable, chronically ill, not in apparent distress. HEENT: Anicteric sclerae. Intact extraocular motions. [address] [address] CONSULTATION Name: DESIRE SUBRAMANIAN Room #: 214-P [facility] IN [place]#: [id number] Admission: 12/11/19 Attend Phys: Darryl Fitzgerald Discharge: Date of : 72 Report #: [id number] NECK: Supple, no JVD or thyromegaly. CHEST: Noted for limited air entry bilaterally with scattered rales and rhonchi. HEART: Regular rate and rhythm without murmurs or gallops. ABDOMEN: Soft, lax. No guarding. Active bowel sounds. EXTREMITIES: Lower extremity exam is noted for chronic stasis dermatitis, trace ankle edema. I do not appreciate pedal pulses. Sensation to light touch is moderately diminished. NEUROLOGIC: Awake, alert, largely nonfocal other than for peripheral sensory deficits. PSYCHIATRIC: Normal mood and affect, interactive, but with disordered thought process, incoherent answers. LABORATORY RESULTS: Having reviewed her blood glucose values at length. The patient had blood glucose values ranging between 98 and 200 for the past few days; however, these have risen to between 300 and 457 mg/dL over the past 48 hours. Sodium 137, potassium 3.7, chloride 101, CO2 of 27, anion gap 9, BUN 28, creatinine 1.0, AST 31, total bilirubin 0.3, calcium 9.3, magnesium 2.0, alkaline phosphatase 113, ALT 24, total protein 8.2, albumin 2.6, eGFR 59. Lactic acid 1.7. Troponin 11.28. BNP 21,350. White blood count 21, hemoglobin 8.5, hematocrit 26.4, platelets 619. COVID negative. ASSESSMENT AND PLAN: 1. Type 2 diabetes mellitus. The patient seems to have had an uncontrolled outlook judging by the abundance of vascular disease and her background. I will seek to further evaluate this with a hemoglobin A1c. During her hospital stay, the patient has a somewhat controlled outlook for a few days, but then developed severe persistent hyperglycemia over the past 48 hours, likely in association with her intercurrent illness and the need to use IV glucocorticoids. That said, I will start the patient on Lantus insulin 30 units daily in addition to Humalog scheduled insulin doses of 12 units per meal 3 times a day while maintaining support with moderate intensity Humalog supplemental scale and maintaining blood glucose monitoring a.c. and at bedtime. Further therapeutic adjustments will be made accordingly. 2. Hyperlipidemia. The patient is currently on atorvastatin therapy and tolerates it well. She is to continue with the same. 3. Respiratory failure. The patient has acute hypoxic respiratory failure and pneumonia, was intubated earlier and remained stable after extubation. She has a background of chronic obstructive pulmonary disease and asthma and is currently on a combination of bronchodilators, corticosteroids that is being tapered as well as antibiotic therapy for possible nosocomial pneumonia. Dr. Reyes is following. 4. Coronary artery disease with a background of myocardial infarction and congestive heart failure. The patient is being actively followed by Cardiology. Her troponin has been elevated in the setting of acute hypoxemia. [facility] [address] [place] [address] CONSULTATION Name: DESIRE SUBRAMANIAN Room #: 214-P [facility] IN M.R.#: [id number] Admission: 12/11/19 Attend Phys: Darryl Fitzgerald Discharge: Date of : 72 Report #: [id number] I have reviewed the patient's clinical care notes, laboratory data and other pertinent clinical information past and present for over 35 minutes. I certainly appreciate this consultation by Dr. Fitzgerald. <ELECTRONICALLY SIGNED> By: Valorie Ross MD 12/18/19 1117 1231 1357 Valorie Ross MD /nt
[2019-12-18 12:16] VITALS: BP 114/68
--- NOTE | 2019-12-18 16:01 | NUR ---
Assumed pt care at 7am.Pt in and out of bed with assist and o2 on with cont. sat monitor.Assessment completed.Vss. Pt was tearful early this am related to her dtr situation.She said she missed her dtr and wanted to be there for her. Emotional support given.Dr Arguello and Charles here,order noted.Pt will be going for cardiac cath with stent placement and arteriogram with runoff in am. Pt signed consent and place in chart.Drssharda change done to aung rg as ordered. Pt isolation dc'd today by attorney general.Pt now up in chair resting with o2 on talking to friend.No soa noted at present.Will continue to monitor.
[2019-12-18 16:40] VITALS: BP 114/74
[2019-12-18 18:45] VITALS: BP 131/69
[2019-12-18 21:00] VITALS: BP 133/77
[2019-12-19] VITALS (11 sets, daily range): BP systolic 94–122; BP diastolic 43–73
[2019-12-19 06:51] LABS: HEMATOCRIT 31.1 % (37.0-47.0); HEMOGLOBIN 10.1 gm/dL (12.0-15.0); MCH 27.3 pg (26.0-34.0); MCHC 32.5 g/dL (28.0-37.0); MCV 83.9 fL (80.0-100.0); RBC 3.71 mil/uL (4.20-5.00); RDW 18.2 % (10.5-14.5); WBC 16.9 thou/uL (4.0-11.0)
[2019-12-19 07:00] LABS: CALCIUM 9.4 mg/dL (8.5-10.1); CREATININE 0.9 mg/dL (0.6-1.0); POTASSIUM 3.6 mmol/L (3.5-5.1)
--- NOTE | 2019-12-19 07:15 | NUR ---
PATIENTS CARES WERE ASSUMED AT SHIFT CHANGE. PATIENT WAS ASSESSED AND MEDS WERE PASSED. PATIENT STARTED HAVING PROJECTILE VOMITING DURING REPORT. PATIENT WAS GIVEN A BATH IN THE CHAIR AND A COMPLETE LINEN CHANGE. A ORDER FOR ZOFRAN WAS OBTAINED AND WAS GIVEN TO THE PATIENT, AFTER THE ZOFRAN THERE WAS NO MORE EMISIS. PATIENT HAD A TOTAL OF 4 LARGE EMISIS. ROUNDING HOURLY WAS DONE. THE BED IS IN A LOW AND LOCKED POSITION.
[2019-12-19 11:08] LABS: ADENOVIRUS Negative (Negative); INFLUENZA A Negative (Negative); INFLUENZA B Negative (Negative); METAPNEUMOVIRUS Negative (Negative); PARAINFLUENZA 1 Negative (Negative); PARAINFLUENZA 2 Negative (Negative); PARAINFLUENZA 3 Negative (Negative); RHINOVIRUS Negative (Negative); RSV A Negative (Negative); RSV B Negative (Negative)
--- NOTE | 2019-12-19 12:05 | NUR ---
Case discussed with the care team. Pt having heart cath today. Current inpt status covered with Caroline [facility]. Update called and faxed to the [facility] and noted possible dc back there for SNF in the next 1-2 days pending her progress. Covid negative screening sheet to be signed by the attending. They can accept for readmission when medically ready. Will follow.
--- NOTE | 2019-12-19 13:11 | CATHLAB ---
[facility] [address] [place] [address] INVASIVE PROCEDURE REPORT Name: DESIRE SUBRAMANIAN Room #: 214-P ADM IN M.R.#: [id number] Admission: 12/11/19 Attend Phys: Darryl Sanderson Carolyn Discharge: Date of : 72 Report #: [id number] THIS REPORT FOR: cc: NAZANIN - No family physician/PCP FAM - No family physician/PCP Carlos Arguello MD [facility] ~ APPROVED REPORT Study performed: 12/19/2019 07:27:50 Patient Details Patient Status: In-Patient Room #: The patient is a 49 year-old female Event Personnel Carlos Arguello [employer], Bear Soto Radiologist, Alessia Espinoza RN RN, Kulwinder Caldwell RTR Lissy, Day Novak Monitor Procedures Performed Art Access - L femoral artery* 85669 Initial Mod Sed Same Phys/QHP Gr5y 156289 90632 Mod Sed Same Phys/QHP Ea 247081 Left Heart Cath w/LT VGram 2177951 LHCLV ELA Place w/wo Plasty Single LAD 330951 ELA Place w/wo Plasty Single CIRC 561460 Hemostasis w/ Mynx Indication Chest pain Procedure Narrative The patient was brought electively to the Cardiac Catheterization Laboratory and was prepped and draped in a sterile manner. The Left Groin^ was infiltrated with 1% Lidocaine subcutaneous anesthesia. A PINNACLE 6FR Sheath #[id number] sheath was inserted into the LFA^. Coronary angiography was performed using coronary diagnostic catheters. The right coronary system was accessed and visualized with a JR4 catheter. The left coronary system was accessed and visualized with a JL4 catheter. The left ventricle was accessed and visualized with a ANGLE PIG catheter. Left ventriculogram was performed in 30 degree projection. There was no hematoma. Intraoperative Conscious Sedation Sedation start time: 814 Case end Time: 1024 [facility] [place] [address] INVASIVE PROCEDURE REPORT Name: DESIRE SUBRAMANIAN Room #: 214-P [facility] IN ..#: [id number] Admission: 12/11/19 Attend Phys: Darryl Orozco Discharge: Date of : 72 Report #: [id number] Fentanyl 150.0 mcg Versed 3.0 mg Fluoro Time: 45.30 minutes Dose: DAP 28817.13 cGycm2 6142 mGy Contrast Type and Amount: Visipaque 35 ml Diagnostic Cath Left Main Minimal distal plaquing LAD Proximal stent with mild to moderate 30 to 40% distal plaquing 95% mid LAD stenosis The distal portion of the LAD is subtotally occluded, thready in caliber Diagonal 1 Small, thready first diagonal branch Circumflex Moderate size circumflex with 95% proximal stenosis. OM1 Diffusely diseased, small, bifurcating first marginal branch OM2 Moderately large second marginal branch with 75-80% proximal stenosis, extension from proximal circumflex stenosis Right Coronary Mild diffuse plaquing throughout the proximal mid and distal right coronary. There is a discrete 85% distal right coronary stenosis. The vessel diameter here and distal is about 1.5 to 2 mm. R PDA Small caliber, diffusely diseased posterior descending Left Ventriculography The left ventricle is normal in size with abnormal contractility. The left ventricular ejection fraction is estimated to be 40-45%. Left ventricular wall motion abnormalities are present. There is no mitral insufficiency. Apical and inferoapical hypokinesis IVUS Intravascular Ultrasound was performed on the proximal circumflex extending into OM2 vessel. A Guide Catheter was used to engage the LAUNCHER 6FR EBU 3.5 #016342 ostium. A Luge Wire .014 x 182CM #[id number] was used. IVUS Findings Euphora RX 2.25 x 10 #[id number] Hemodynamics The aortic pressure is 120/56 mmHg with a mean of 80 mmHg. The left ventricular pressure is 122/6 mmHg with a mean of mmHg. [facility] [address] [place] [address] INVASIVE PROCEDURE REPORT Name: DESIRE SUBRAMANIAN Room #: 214-P [facility] IN ..#: [id number] Admission: 12/11/19 Attend Phys: Darryl Orozco Discharge: Date of : 72 Report #: [id number] PCI Technique Lesion Anticoagulation was achieved with Heparin, Integrilin. Patient was preloaded with Plavix. Percutaneous coronary intervention was performed on the mid left anterior descending artery segment. The lesion stenosis prior to intervention was 95% with GREGORY 3 flow. A LAUNCHER 6FR EBU 3.5 #[id number] Guide Catheter was used to engage the LAD ostium. A Luge Wire .014 x 182CM #[id number] Interventional Guidewire was used to cross the lesion. BALLOON DILATION A Balloon catheter Euphora RX 2.5 x 12 #[id number] was inserted and inflated up to 8.00atm for 31seconds. Repeat angiography revealed the following post-dilatation results: Moderate residual stenosis. STENT DEPLOYMENT A stent RESOLUTE HOLLY RX 2.5 X 18 #[id number] was inserted and inflated up to 8.00atm for 31seconds. ADDITITONAL INFLACTIONS WERE: 22 arm for 18 sec, and 22 gama for 21 secs. POST STENT DEPLOYMENT BALLOON DILATION A Balloon catheter TREK NC RX 2.5 X 15 #[id number] was inserted and inflated up to 22atm for 45seconds. Additional Inflation: 22atm for 45seconds. Final angiography reveals 0 % stenosis with GREGORY 3 flow. PCI Technique Lesion Percutaneous coronary intervention was performed on the proximal circumflex extending into OM2. A LAUNCHER 6FR EBU 3.5 #105201 Guide Catheter was used to engage the ostium. A Luge Wire .014 x 182CM #[id number] Interventional Guidewire was used to cross the lesion. BALLOON DILATION A Balloon catheter Euphora RX 2.25 x 10 #[id number] was inserted and inflated up to 14atm for 50seconds. Additional Inflation: 16atm for 46seconds. Additional Inflation: 18atm for 49seconds. additional inflactions: 18atm for 48 secs. and 14atm for 30 secs. Multiple inflations including use of a non-compliant balloon to predilate the lesion to deliver the stents were required. Multiple wire and catheter exchanges including use of a gogo wire. A 2.25 x [address] proximally in the circumflex. STENT DEPLOYMENT A drug-eluting stent RESOLUTE HOLLY RX 2.25 X 18 #[id number] was inserted and inflated up to 16atm for 35seconds. The 2.25 x 18 mm Resolute was [address] [address] INVASIVE PROCEDURE REPORT Name: DESIRE SUBRAMANIAN Room #: 214-P [facility] IN M.R.#: [id number] Admission: 12/11/19 Attend Phys: Darryl Orozco Discharge: Date of : 72 Report #: [id number] placed in sequence to the 12 mm stent more proximally. POST STENT DEPLOYMENT BALLOON DILATION A Balloon catheter TREK NC RX 2.25 X 12 #[id number] was inserted and inflated up to 12atm for 20seconds. Additional Inflation: 22atm for 109seconds. Additional Inflation: 22atm for 105seconds. Final angiography reveals 0 % stenosis with GREGORY 3 flow. PCI Technique Lesion 2 Percutaneous Coronary Intervention was performed on the mid circumflex artery segment. A LAUNCHER 6FR EBU 3.5 #287708 Guide Catheter was used to engage the ostium. A Luge Wire .014 x 182CM #[id number] Interventional Guidewire was used to cross the lesion. Balloon Dilation A Balloon catheter Euphora RX 2.25 x 15 #[id number] was inserted and inflated up to 14.00atm for 43seconds. Additional Inflation: 15.00atm for 37seconds. Additional Inflation: 15.00atm for 35seconds. additional inflation 15 gama for 24 sec. Stent Deployment A stent RESOLUTE HOLLY OTW 2.25 X 12 #[id number] was inserted and inflated up to 20atm for 38seconds. Additional Inflation: 16atm for 35seconds. PCI Technique Lesion 3 Percutaneous Coronary Intervention was performed on the Superficial Femoral. Conclusion 1. Moderate left ventricular dysfunction with apical and inferoapical hypokinesis. Ejection fraction 40 to 45% 2. Mild left main plaquing 3. Severe mid LAD stenosis stented with a 2.5 x 18 mm Resolute stent 4. Severe proximal circumflex stenosis extending into a moderately large OM 2 branch, stented in sequence with a 2.25 x 12 mm, then 2.25 x 18 mm Resolute stent 5. Dominant right coronary with mild proximal and mid plaquing. 85% distal right coronary stenosis. This was a small calibered vessel with small, thready diffuse disease more distally [facility] [address] [place] [address] INVASIVE PROCEDURE REPORT Name: DESIRE SUBRAMANIAN Room #: 214-P [facility] IN .R.#: [id number] Admission: 12/11/19 Attend Phys: Darryl Orozco Discharge: Date of : 72 Report #: [id number] Recommendations Aggressive Medical Therapy <ELECTRONICALLY SIGNED> By: Carlos Arguello MD, FACC 12/19/19 1309 1309 130 Carlos Arguello MD, FACC /INF
--- NOTE | 2019-12-19 14:33 | EKG ---
[facility] [place] [address] ELECTROCARDIOGRAM REPORT Name: DESIRE SUBRAMANIAN Room #: 214-P ADM IN M.R.#: [id number] Admission: 12/11/19 Attend Phys: Darryl Fitzgerald Discharge: Date of : 72 Report #: [id number] THIS REPORT FOR: cc: NAZANIN - No family physician/PCP NAZANIN - No family physician/PCP Carlos Arguello MD [facility] THIS REPORT FOR: //name// [facility] Test Date: 2019-12-19 Test Time: 12:39:01 Pat Name: DESIRE SUBRAMANIAN Department: Room: 214 Gender: F Green Hide Inspector: Francisco NGUYEN : 1970 Requested By: Carlos Arguello Order Number: [id number] MD: Carlos Arguello Measurements Intervals [place] Rate: 94 P: 66 MO: 145 QRS: 54 QRSD: 101 T: 82 QT: 374 QTc: 468 Interpretive Statements Sinus rhythm Anteroseptal infarct, age indeterminate Baseline wander in lead(s) II,III,aVF Compared to ECG 12/14/2019 07:48:33 Sinus tachycardia no longer present Electronically Signed On 12-19-2019 14:32:12 CDT by Carlos Arguello [email or web address] <ELECTRONICALLY SIGNED> By: Carlos Arguello MD, FAC 12/19/19 1432 1239 1239 Carlos Arguello MD, FAC /EPI
--- NOTE | 2019-12-19 15:27 | NUR ---
DOWN EARLY THIS SHIFT FOR CARDIAC CATH AND ARTERIAL RUNOFF. BACK TO UNIT AT 1215. CATH SITE LEFT GROIN SOFT, NONTENDER, CDI, 2X2 IN PLACE. FREQUENT VSS. SR/ST PER TELE. VOMITED AFTER EATING LUNCH, CAUSING GROIN SITE TO BLEED. PRESSURE HELD FOR 20 MINUTES, BLEEDING STOPPED, OUTLINED WITH PEN. BLEED DID NOT EXCEED 2X2 DRESSING, SITE STILL SOFT AND NONTENDER. DR. PAEZ CALLED AND INFORMED OF SAME. BEDREST EXTENDED FOR SIX MORE HOURS ORDERED.
[2019-12-20 03:30] VITALS: BP 122/52
[2019-12-20 05:46] LABS: HEMATOCRIT 25.3 % (37.0-47.0); MCH 26.8 pg (26.0-34.0); MCV 83.8 fL (80.0-100.0); RBC 3.01 mil/uL (4.20-5.00); RDW 17.9 % (10.5-14.5); WBC 15.5 thou/uL (4.0-11.0)
[2019-12-20 06:00] LABS: HEMOGLOBIN 8.1 gm/dL (12.0-15.0)
[2019-12-20 06:35] LABS: ALBUMIN 2.3 g/dL (3.4-5.0); CALCIUM 7.7 mg/dL (8.5-10.1); CREATININE 0.8 mg/dL (0.6-1.0); POTASSIUM 3.9 mmol/L (3.5-5.1); TOTAL BILIRUBIN 0.2 mg/dL (<0.1-1.0)
[2019-12-20 06:38] LABS: TROPONIN-I 1.72 ng/mL (<0.06)
[2019-12-20 07:36] VITALS: BP 107/48
--- NOTE | 2019-12-20 10:03 | EKG ---
[facility] [address] [place] [address] ELECTROCARDIOGRAM REPORT Name: DESIRE SUBRAMANIAN Room #: 214-P ADM IN M.R.#: [id number] Admission: 12/11/19 Attend Phys: Darryl Fitzgerald Discharge: Date of : 72 Report #: [id number] THIS REPORT FOR: cc: NAZANIN - Naz family physician/PCP NAZANIN - Naz family physician/PCP Carlos Arguello MD [facility] THIS REPORT FOR: //name// [facility] Test Date: 2019-12-20 Test Time: 08:50:29 Pat Name: DESIRE SUBRAMANIAN Department: Room: 214 Gender: F Facilities Plant Engineer: Adela NICHOLAS : 1970 Requested By: Carlos Arguello Order Number: [id number] MD: Carlos Arguello Measurements Intervals [place] Rate: 98 P: 63 MS: 129 QRS: 70 QRSD: 105 T: 85 QT: 390 QTc: 499 Interpretive Statements Sinus rhythm Nonspecific T wave abnormality Borderline prolonged QT interval Compared to ECG 12/19/2019 12:39:01 No significant change was found Electronically Signed On 12-20-2019 10:02:29 CDT by Carlos Arguello [email or web address] <ELECTRONICALLY SIGNED> By: Carlos Arguello MD, [facility] 12/20/19 1002 0850 0850 Carlos Arguello MD, [facility] /EPI
[2019-12-20 11:23] VITALS: BP 115/49
--- NOTE | 2019-12-20 12:19 | NUR ---
No dc to snf today. Procedure schedule in IR tomorrow for stent. [facility] updated as well as the care team. Possible dc in 1-2 days. Pt has improved and is now on 3liters of O2. Will follow.
[2019-12-20 15:33] VITALS: BP 112/57
--- NOTE | 2019-12-20 17:00 | NUR ---
took over care of pt at 0710, assessed, vss, pt alert x2, pleasant, sits up in bed with legs crossed and moves around as pleases, while staying in her bed, trops slightly elevated, dr Caal aware, dr Anders and nurse changed foot dressings, pt aware of cath tomorrow. will monitor
[2019-12-20 19:48] VITALS: BP 110/63
[2019-12-21] VITALS (18 sets, daily range): BP systolic 95–128; BP diastolic 42–86
[2019-12-21 05:26] LABS: HEMATOCRIT 23.3 % (37.0-47.0); HEMOGLOBIN 7.6 gm/dL (12.0-15.0); MCH 27.5 pg (26.0-34.0); MCHC 32.4 g/dL (28.0-37.0); MCV 84.7 fL (80.0-100.0); RBC 2.75 mil/uL (4.20-5.00); RDW 18.7 % (10.5-14.5); WBC 13.3 thou/uL (4.0-11.0)
--- NOTE | 2019-12-21 05:28 | NUR ---
ASSESSMENT DOCUMENTED.PT BEEN RESTING IN NO ACUTE DISTRESS.A/OX3.VSS.PT ON O2 AT 2LITERS PER NC W/O RESP DISTRESS.PT HAD BIPAP ON FOR COUPLE OF HOURS WHILE SLEEPING,SATS ADEQUATE.NPO FOR IR PROCEDURE TODAY.PT DENIES PAIN.KIRILL FEET DRESSING CDI.EDNA DD.POC IS TO HAVE IR PROCEDURE TODAY W/STENTS HAYDER LSFA W/POSSIBLE DISCHARGE TO SNF TOMORROW.
--- NOTE | 2019-12-21 11:45 | NUR ---
Pt having stent placement in IR today. PLan for dc back to SNF at [facility] tomorrow. Their oncall liason is Aparna cell# . Weekend staff to call her to arrange for w/c van with o2 and get numbers for report and to fax orders. Staff will need to call her friend Nilda to confirm her dc as well as her house arrest coordinator Caroline to confirm she is going back [facility]. A chart copy will be needed to send with the pt including her dc summary and instructions. Nilda and Caroline updated today.
--- NOTE | 2019-12-21 16:43 | NUR ---
ASSUMED CARE 0700.ALERT X4, FROM LTC, IR FOR CATH TO LEFT SFA STENT PLACED. POST CATH VS PER PROTOCOL IN PLACE. RIGHT GROIN SITE C/D/I-PT COMPLIANT WITH KEEPING LEG IMMOBILIZED FOR 4 HRS POST CATH. SCHEDULED MEDS GIVEN PER ORDERED. DENIES PAIN, DENIES SOB. DENIES NAUSIA. UP WITH THERAPY TODAY. CALL LIGHT AND PERSONAL ITEMS IN REACH. FALL PRECATIONS IN PLACE.
[2019-12-22] VITALS (7 sets, daily range): BP systolic 11–131; BP diastolic 58–88
--- NOTE | 2019-12-22 05:13 | NUR ---
PT ALERT AND ORIENTED. VSS. S/P STENTING OF LE. MILD PAIN TO THE LE BUT PATIENT REPORTS FEELING BETTER. PULSE ARE 2/1. NO OTHER CONCERNS AT THIS POINT. NO EVENTS OVERNIGHT. PT PROGRESSING TOWARDS GOAL.
[2019-12-22 06:21] LABS: HEMATOCRIT 24.3 % (37.0-47.0); MCH 28.2 pg (26.0-34.0); MCHC 32.7 g/dL (28.0-37.0); MCV 86.1 fL (80.0-100.0); RBC 2.83 mil/uL (4.20-5.00); RDW 19.9 % (10.5-14.5); WBC 9.5 thou/uL (4.0-11.0)
--- NOTE | 2019-12-22 14:47 | NUR ---
ASSUMED CARE 0700. ALERT X4, DENIES CHEST PAIN, DENIES SOB, DIET REINSTATED FOR LUNCH TODAY. GI PROCEDURE PLANNED FOR TUESDAY. DIET ORDERS WILL ADJUST TO REFLECT GI PROCEDURE. BISHOP REMOVED. 2500CC OUTPUT AT THIS TIME. NO BM NOTED AT THIS TIME. COMPLIANT WITH CARES. WOUND DRESSING CHANGED BY WOUND CARE DOCTOR. FALL PRECATIONS IN PLACE. PT CALLS FOR ASSISTANCE.
--- NOTE | 2019-12-22 15:28 | NUR ---
1500:ASSUMED CARE OF PT, A&0X3-4, FORGETFUL. INTRO'D SELF AND GOT HER WATER. WILL CONTINUE TO MONITOR. SEE SEPARATE INTERVENTIONS FOR ASSESSMENTS
--- NOTE | 2019-12-23 03:51 | NUR ---
PT SLEPT MOST OF THE NIGHT. REPORTS PAIN IN THE HANDS. MORPHINE X1 GIVEN. PT HAD 1 EPISODE OF NAUSEA WITH VOMITING. ZOFRAN X1 GIVEN. PT STILL HAS NOT HAD A BOWEL MOVEMENT, STOOL BLOOD OCCULT STILL PENDING. NO OTHER CONCERNS. DENIES CHEST PAINS. WILL CONTINUE WITH POC.
[2019-12-23 05:25] VITALS: BP 116/66
[2019-12-23 09:00] VITALS: BP 86/69
[2019-12-23 10:00] VITALS: BP 110/61
[2019-12-23 13:37] VITALS: BP 104/54
[2019-12-23 16:28] VITALS: BP 127/59
--- NOTE | 2019-12-23 17:08 | NUR ---
ASSUMED CARE PT AT APPROX 0930. ASSESSMENTS CHARTED. MEDS GIVEN PER NOV. PT ALERT AND ORIENTED.VSS. DENIES PAIN. O2 SATS WNL ON ROOM AIR. PT UP SBA TOLERATING WELL. PT SEEN BY WOUND CARE DR RODRIGUEZ. BOWEL PREP INITIATED PER ORDERS. PT CURRENTLY ON CLEAR LIQUIDS. TOLERATING WELL. URINE OUTPUT ADEQUATE. PT CURRENTLY SITTING UP IN BED. CALLS WITH NEEDS. WILL CONTINUE TO MONITOR AND FOLLOW POC.
[2019-12-23 19:51] VITALS: BP 125/65
--- NOTE | 2019-12-24 03:30 | NUR ---
ASSESSMENTS CHARTED, MEDS GIVEN CHARTED. PATIENT FINISHED INTAKE OF BOWEL PREP PRIOR TO SHIFT CHANGE. PATIENT UP WITH STANDBY ASSIST TO BSC. PATIENT IS SCHEDULED FOR EGD AND COLONOSCOPY IN THE MORNING. PATIENT HAS HAD AORTIGRAM VIA LEFT GROIN, #1 TOE ON LEFT FOOT AMPUTATED AND HEEL ON RIGHT FOOT DEBRIDED DURING THIS VISIT. FALL PRECAUTIONS IN PLACE DURING SHIFT.
[2019-12-24 04:57] VITALS: BP 106/50
[2019-12-24 08:00] VITALS: BP 79/52
[2019-12-24 12:00] VITALS: BP 136/63
--- NOTE | 2019-12-24 13:29 | P ---
[facility] [place] [address] [address] [place] [address] PROCEDURE REPORT Name: DESIRE SUBRAMANIAN Room #: 214-P [facility] IN .R.#: [id number] Admission: 12/11/19 Attend Phys: Darryl Fitzgerald Discharge: Date of : 72 Report #: [id number] THIS REPORT FOR: cc: FAM - No family physician/PCP FAM - No family physician/PCP Zeferino Espinosa MD ~ CC: Carlos Arguello MD [facility] physician/PCP Darryl Fitzgerald MD DATE OF SERVICE: 12/24/2019 PROCEDURE PERFORMED: Colonoscopy. HISTORY OF PRESENT ILLNESS: The patient is a 49-year-old female with a history of iron deficiency anemia. Stool was Hemoccult negative x 1 during this hospitalization. She is currently on aspirin and Plavix for history of peripheral vascular disease, status post recent stent placement. Denies any obvious bright red blood per rectum or melena. Last hemoglobin was 8.0. She has received IV iron during this hospital stay. No family history of colon cancer that she is aware of. DESCRIPTION OF PROCEDURE: The risks and benefits of the procedure were explained to the patient. Those risks including but not limited to bleeding, perforation and the risk of sedation. She understood these risks and gave informed consent. Sedation was given using propofol per anesthesia. Next, a digital rectal exam showed medium size nonbleeding external hemorrhoids, otherwise normal. Next, using a standard Olympus colonoscope, the scope was placed in the patient's anus and advanced under direct vision to the cecum. The overall prep was poor in some areas, but most areas were fairly well visualized. Multiple washings and aspirations were performed. In the cecum, a possible small 4 mm nonbleeding AVM was noted. This could be just a small area of erythema. It was difficult to tell if this was a true AVM. Again as the patient is on aspirin and Plavix and there was no bleeding at this time, I did not proceed with cautery of this area. The remaining cecum that was visualized was normal. The ileocecal valve was normal. The visualized portions of the ascending, transverse and descending and sigmoid colon were normal. In the rectum, a small hyperplastic appearing polyp was noted. Again, I did not remove this as the patient is on aspirin and Plavix. On retroflexion, no abnormalities were noted. Again, medium sized nonbleeding external hemorrhoids were noted. The scope was then withdrawn and the procedure terminated. The patient tolerated the procedure well. IMPRESSION: [facility] [address] [place] [address] PROCEDURE REPORT Name: DESIRE SUBRAMANIAN Room #: 214-P [facility] IN .R.#: [id number] Admission: 12/11/19 Attend Phys: Darryl Fitzgerald Discharge: Date of : 72 Report #: [id number] 1. 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 2. Small rectal polyp. 3. External hemorrhoids, nonbleeding. 4. Otherwise, normal colonoscopy; however, prep was poor in some areas as described above. RECOMMENDATIONS: There were no signs of bleeding today on EGD or colonoscopy. Stool was Hemoccult negative x 1 during this hospital stay. I would recommend continuing daily Protonix and observing. The patient's hemoglobin has been low, but stable throughout this hospital stay, she has not required blood transfusion. At this point, I would recommend continuing to monitor. Consider repeat colonoscopy in approximately 6 months when the patient can be off her aspirin and Plavix due to the prep being poor in areas. The area of erythema and possible AVM could be treated at that time in the cecum and the rectal small polyp could be removed at that time. Thank you for allowing me to participate in her care. <ELECTRONICALLY SIGNED> By: Zeferino Espinosa MD 12/24/19 1329 [id number] Zeferino Espinosa MD /nt
--- NOTE | 2019-12-24 13:29 | P ---
[facility] [place] [address] [place] [address] PROCEDURE REPORT Name: DESIRE SUBRAMANIAN Room #: 214-P [facility] IN .R.#: [id number] Admission: 12/11/19 Attend Phys: Darryl Fitzgerald Discharge: Date of : 72 Report #: [id number] THIS REPORT FOR: cc: FAM - No family physician/PCP FAM - No family physician/PCP Zeferino Espinosa MD ~ CC: Carlos Arguello MD [facility] physician/PCP Draryl Fitzgerald MD DATE OF SERVICE: 12/24/2019 PROCEDURE PERFORMED: Upper endoscopy. HISTORY OF PRESENT ILLNESS: The patient is a 49-year-old female with a history of iron deficiency anemia, multiple medical problems, currently on aspirin and Plavix for history of peripheral vascular disease, had a recent angiogram with angioplasty and stent placement in her left lower extremity. No obvious bright red blood per rectum or melena. The patient has been hospitalized since 12/11/2019. Her hemoglobin has been in the 7-1/2 to 9 range. Hemoglobin at this time is 8.0. She has Hemoccult testing of her stool x 1 that was negative on 12/23/2019. Plan is for EGD and colonoscopy today. She denies any abdominal pain. She does have a history of reflux and was admitted on Pepcid. She is currently on Protonix. She denies any dysphagia. No family history of colon cancer. DESCRIPTION OF PROCEDURE: The risks and benefits of the procedure were explained to the patient, those risks including but not limited to bleeding, perforation and the risk of sedation. She understood these risks and gave informed consent. Sedation was given using propofol per anesthesia. Next, using a standard Olympus upper endoscope, the scope was placed in the patient's mouth and advanced under direct vision through the esophagus, stomach and into the second portion of the duodenum. The esophagus was normal throughout. The GE junction was normal. Overall, there was a mild gastritis in the fundus and body as well as the antrum. No evidence of erosions or ulcerations. No bleeding was noted, otherwise negative. I was not able to take biopsies today as the patient has been on aspirin and Plavix or is on aspirin and Plavix. The pylorus was normal and patent. The duodenal bulb, first and second portion were all normal. The scope was then withdrawn and the procedure terminated. The patient tolerated the procedure well. IMPRESSION: 1. Gastritis. No evidence of ulcerations or erosions, no bleeding. 2. Otherwise, normal upper endoscopy. [address] [address] PROCEDURE REPORT Name: DESIRE SUBRAMANIAN Room #: 214-P [facility] IN M.R.#: [id number] Admission: 12/11/19 Attend Phys: Darryl Fitzgerald Discharge: Date of : 72 Report #: [id number] RECOMMENDATIONS: 1. We would recommend continuing daily PPI therapy. 2. We will proceed with colonoscopy next today. Thank you for allowing me to participate in her care. <ELECTRONICALLY SIGNED> By: Zeferino Espinosa MD 12/24/19 1329 [id number] Zeferino Espinosa MD /nt
--- NOTE | 2019-12-24 14:36 | NUR ---
Assumed pt care at 7am.Pt in bed sound asleep at the beginning of shift till 8am.Assessment completed.vss.Pt kept npo for egd and colonoscopy.At 0830am,pt left for gi lab after updates given to representative government relations. Pt returned to floor at 1130am post procedures in stable condition.No active bleeding per gi report.Pt has resumed previous diet.Ice tea given per pt request.No c/o soa or discomfort at present.Will continue to monitor.
[2019-12-24 16:00] VITALS: BP 126/64
--- NOTE | 2019-12-24 16:44 | NUR ---
FAXED CLINICAL UPDATE TO [facility] SPOKE WITH CHRISTELLE IN ADM SHE RECEIVED UPDATE. DP TO FOLLOW.
[2019-12-24 20:12] VITALS: BP 111/50
[2019-12-25] VITALS: BP 129/60
[2019-12-25 05:04] VITALS: BP 125/61
--- NOTE | 2019-12-25 05:09 | NUR ---
ASSESSMENTS CHARTED, MEDS CHARTED GIVEN. PATIENT HAD EGD AND COLONOSCOPY DURING THE DAY. RESTING IN BED DURING SHIFT. C/O BEING UNABLE TO SLEEP DURING NIGHT. AFTER ANXIETY MED, PATIENT WAS ABLE TO FALL ASLEEP. C/O RIGHT HAND BEING SWOLLEN, TRYING TO WORK OUT SWELLING, C/O PAIN IN HAND. PLAN OF CARE IS TO RETURN TO [facility] IN THE MORNING.
[2019-12-25 07:30] VITALS: BP 101/76
[2019-12-25] MEDS ORDERED: COZAAR 25 MG TA25 M1 PO (08:49)
[2019-12-25] MEDS ORDERED: ASPIR 8181 MG PO (08:49)
[2019-12-25] MEDS ORDERED: LASIX 20 MG TAB20 MG PO (08:50)
[2019-12-25] MEDS ORDERED: LANTUS SUBQ (08:50)
[2019-12-25] MEDS ORDERED: HUMALOG100 UNIT/1 SUBQ (08:59)
[2019-12-25] MEDS ORDERED: CIPRO500 MG PO (09:01)
--- NOTE | 2019-12-25 10:05 | NUR ---
PT DISCHARGING TODAY BACK TO [facility] FAXED DC ORDERS/SUMMARY TO FACILITY SPOKE WITH CHRISTELLE IN ADM SHE RECEIVED ORDERS AND ARRANGED TRANSPORT BY [facility] FOR [id number]. UNIT NOTIFIED AND CHART COPY PER US. RN TO CALL REPORT TO [phone].
[2019-12-25 11:30] VITALS: BP 118/69
--- NOTE | 2019-12-25 12:50 | NUR ---
Patient to dc to [facility] today. Left message with Caroline montanamgr with [facility] [address] of dc today. notfied patients friend of dc.
--- NOTE | 2019-12-25 14:12 | NUR ---
Assumed pt care this am, VS stable, blood sugar check one and medications given as per emar. Wound dressing on both sites are c/d/i, wound dressing and picture changes done. Pt is albe to get up from the chair to the commode using s walker with minimal assistance. Pt anxiety was rising mid morning, medication given, pt is redirectable. No signs or verbalizations of distress have bee noted, right hand swelling had decresed. right IJ removed, pressure placed for 10 mininutes, no bleeding was noted. REport given to [facility] of [place]. Pt is now dc.
== END 2019-12-25 14:08 | DRG 853 ==
LOC: ER 21:56 → EROBS 23:33 → ICU 23:33 → EROBS 12-12 02:01 → ICU 12-12 02:33 → 2N 12-15 22:57
PROVIDERS: Emergency Medicine; Hospitalist; Internal Medicine; Nurse Practitioner; Nurse Practitioner Family; Specialist; ADMIT Hospitalist
PROC: 0BH17EZ Insertion of Endotracheal Airway into Trachea, Via Natural or Artificial Opening (ICD-10-PCS; 2019-12-12)
PROC: 5A1945Z Respiratory Ventilation, 24-96 Consecutive Hours (ICD-10-PCS; 2019-12-12)
PROC: 5A09357 Assistance with Respiratory Ventilation, Less than 24 Consecutive Hours, Continuous Positive Airway Pressure (ICD-10-PCS; 2019-12-15)
PROC: 5A09357 Assistance with Respiratory Ventilation, Less than 24 Consecutive Hours, Continuous Positive Airway Pressure (ICD-10-PCS; 2019-12-17)
PROC: 04CK3ZZ Extirpation of Matter from Right Femoral Artery, Percutaneous Approach (ICD-10-PCS; 2019-12-19)
PROC: 3E073PZ Introduction of Platelet Inhibitor into Coronary Artery, Percutaneous Approach (ICD-10-PCS; 2019-12-19)
PROC: 047K3D1 Dilation of Right Femoral Artery with Intraluminal Device, using Drug-Coated Balloon, Percutaneous Approach (ICD-10-PCS; 2019-12-19)
PROC: 4A023N7 Measurement of Cardiac Sampling and Pressure, Left Heart, Percutaneous Approach (ICD-10-PCS; 2019-12-19)
PROC: B240ZZ3 Ultrasonography of Single Coronary Artery, Intravascular (ICD-10-PCS; 2019-12-19)
PROC: B41D1ZZ Fluoroscopy of Aorta and Bilateral Lower Extremity Arteries using Low Osmolar Contrast (ICD-10-PCS; 2019-12-19)
PROC: B211YZZ Fluoroscopy of Multiple Coronary Arteries using Other Contrast (ICD-10-PCS; 2019-12-19)
PROC: B215YZZ Fluoroscopy of Left Heart using Other Contrast (ICD-10-PCS; 2019-12-19)
PROC: 027137Z Dilation of Coronary Artery, Two Arteries with Four or More Drug-eluting Intraluminal Devices, Percutaneous Approach (ICD-10-PCS; 2019-12-19)
PROC: 5A09357 Assistance with Respiratory Ventilation, Less than 24 Consecutive Hours, Continuous Positive Airway Pressure (ICD-10-PCS; 2019-12-20)
PROC: B4181ZZ Fluoroscopy of Bilateral Renal Arteries using Low Osmolar Contrast (ICD-10-PCS; principal; 2019-12-21)
PROC: 04CL3ZZ Extirpation of Matter from Left Femoral Artery, Percutaneous Approach (ICD-10-PCS; 2019-12-21)
PROC: 047K3D1 Dilation of Right Femoral Artery with Intraluminal Device, using Drug-Coated Balloon, Percutaneous Approach (ICD-10-PCS; 2019-12-21)
PROC: 047U34Z Dilation of Left Peroneal Artery with Drug-eluting Intraluminal Device, Percutaneous Approach (ICD-10-PCS; 2019-12-21)
PROC: 04CU3ZZ Extirpation of Matter from Left Peroneal Artery, Percutaneous Approach (ICD-10-PCS; 2019-12-21)
PROC: 0DJ08ZZ Inspection of Upper Intestinal Tract, Via Natural or Artificial Opening Endoscopic (ICD-10-PCS; 2019-12-24)
PROC: 0DJD8ZZ Inspection of Lower Intestinal Tract, Via Natural or Artificial Opening Endoscopic (ICD-10-PCS; 2019-12-24)
DX: A41.9 Sepsis, unspecified organism (principal); L89.613 Pressure ulcer of right heel, stage 3; J18.9 Pneumonia, unspecified organism; J96.21 Acute and chronic respiratory failure with hypoxia; I21.4 Non-ST elevation (NSTEMI) myocardial infarction; R65.21 Severe sepsis with septic shock; G92 Toxic encephalopathy; J44.1 Chronic obstructive pulmonary disease with (acute) exacerbation; N39.0 Urinary tract infection, site not specified; N17.9 Acute kidney failure, unspecified; I50.22 Chronic systolic (congestive) heart failure; J44.0 Chronic obstructive pulmonary disease with (acute) lower respiratory infection; I13.0 Hypertensive heart and chronic kidney disease with heart failure and stage 1 through stage 4 chronic kidney disease, or unspecified chronic kidney disease; J45.909 Unspecified asthma, uncomplicated; N18.9 Chronic kidney disease, unspecified; R65.20 Severe sepsis without septic shock; E11.65 Type 2 diabetes mellitus with hyperglycemia; E83.42 Hypomagnesemia; F31.9 Bipolar disorder, unspecified; F41.9 Anxiety disorder, unspecified; K21.9 Gastro-esophageal reflux disease without esophagitis; E11.42 Type 2 diabetes mellitus with diabetic polyneuropathy; E11.51 Type 2 diabetes mellitus with diabetic peripheral angiopathy without gangrene; I25.10 Atherosclerotic heart disease of native coronary artery without angina pectoris; G47.33 Obstructive sleep apnea (adult) (pediatric); E78.5 Hyperlipidemia, unspecified; M79.7 Fibromyalgia; G72.9 Myopathy, unspecified; K29.70 Gastritis, unspecified, without bleeding; K62.1 Rectal polyp; K64.4 Residual hemorrhoidal skin tags; I65.29 Occlusion and stenosis of unspecified carotid artery; Y95 Nosocomial condition; D50.9 Iron deficiency anemia, unspecified; I25.5 Ischemic cardiomyopathy; X58.XXXA Exposure to other specified factors, initial encounter; E11.22 Type 2 diabetes mellitus with diabetic chronic kidney disease; Z20.828 Contact with and (suspected) exposure to other viral communicable diseases; B96.1 Klebsiella pneumoniae [K. pneumoniae] as the cause of diseases classified elsewhere; S80.211A Abrasion, right knee, initial encounter; Z79.01 Long term (current) use of anticoagulants; Z86.718 Personal history of other venous thrombosis and embolism; I25.2 Old myocardial infarction; Z89.419 Acquired absence of unspecified great toe; Z79.82 Long term (current) use of aspirin; Z79.899 Other long term (current) drug therapy; Y93.89 Activity, other specified; Y92.89 Other specified places as the place of occurrence of the external cause; Y99.8 Other external cause status
CPT/HCPCS: 10078; 10081; 62110; 62900; 70005